=== PATIENT | male | born 1990 | race Caucasian/White ===

== ENCOUNTER 2022-06-10 07:53 | Outpatient (CLI) | payer BC, SELFPAY ==
--- NOTE | 2022-06-10 07:15 | MR_ITS ---
[address] [address] Phone:?[phone] Fax:?[phone] Referring Physician Information: Elo Thomas [address] [facility] [address] Phone:?[phone] Fax:?[phone] Patient:Izabela Escobar D.O.B:?1990 Sex:?Male Phone:?[phone] [facility] MRN:?[id number] Exam Date:?06/10/2022 ? EXAM: MRI of the LEFT ANKLE, without contrast CLINICAL: Left ankle pain. COMPARISONS: None available. TECHNICAL: MRI sequences of the left ankle: Axials: PD, T2 Coronals: PD, T2 Sagittals: PD, T2, STIR SEDATION: None. CONTRAST: None. FINDINGS: Achilles tendon: No tendinopathy or tear. No retrocalcaneal bursitis. Plantar aponeurosis: Unremarkable. Tarsal tunnel: No masses identified. Sinus Tarsi:?Normal fat within the sinus tarsi without significant scar, synovitis, or mass lesion. Ligaments: Anterior talofibular: Irregularity of the ligament consistent with sequelae of prior sprain injuries, without complete disruption. Calcaneofibular: No injury. Posterior talofibular: No injury. Syndesmotic:?The anterior inferior and posterior inferior tibiofibular ligaments are intact. Deltoid: The deep and superficial components of the deltoid ligament are intact. Spring: Intact. Bifurcate and calcaneocuboid: Intact. Flexor tendons: Posterior tibial: Minimal fluid about the tendon. No significant tendinosis or tendon tear. Flexor digitorum longus: Normal. Flexor hallucis longus: Normal. Peroneus brevis and longus: Mild to moderate tendinosis of the peroneal brevis tendon as it courses between the distal fibula and distal calcaneus with mild tendinosis of the adjacent coursing peroneal longus tendon. No significant peroneal tendon tear or displacement. Extensor tendons: Tibialis anterior: Normal, without tendinopathy, tenosynovitis or tear. Extensor hallucis longus: Normal. Extensor digitorum longus: Normal. Joints/Osseous structures: There is partially visualized increased bone marrow edema involving the distal fibular diaphysis/metadiaphysis as seen on the sagittal STIR sequence. No additional evidence of bone marrow edema and no discrete fracture is identified. No talar dome osteochondral lesion. IMPRESSION: 1. Partially visualized increased bone marrow edema involving the distal fibular diaphysis and metadiaphysis, not entirely included in the [id number]. This could reflect osseous stress related change. Recommend follow-up with MRI of the distal tibia/fibula for complete visualization/evaluation. 2. Sequelae of prior sprain injuries involving the anterior talofibular ligament. 3. Mild to moderate tendinosis of the peroneal brevis tendon as it courses between the distal fibula and distal calcaneus, with mild tendinosis of the adjacent peroneal longus tendon. No flexor or extensor tendon tear identified. JCZ Electronically signed on 06/10/2022 11:37:00 AM by Seymour Holt D.O.
--- OUTSIDE RECORDS SUMMARY | 2022-06-10 07:55 | XMS_ITS ---
:1990 Author Care Team Providers Name Role Phone Jamie Uribe Primary Care Provider Unavailable Allergies Code Code System Name Reaction Severity Status Onset NKDA ? Medications Name Status Start Date Stop Date ? ? doxycycline hyclate 100 mg capsule Active ? Not available TAKE 1 CAPSULE BY MOUTH TWICE DAILY FOR 21 DAYS escitalopram 20 mg tablet Completed ? 2020 TAKE 1 TABLET BY MOUTH EVERY MORNING fluoxetine 10 mg capsule Completed ? fluoxetine 20 mg capsule Active ? Not daphnie ilable meloxicam 15 mg tablet Active ? Not avail able TAKE 1 TABLET BY MOUTH EVERY DAY WITH MEALS. sumatriptan 50 mg tablet Completed ? Problems None recorded. Procedures Date Name Performed by ? ? Hernia Repair Information not avai lable Results Lab Results None recorded. Past Encounters None recorded. Social History Tobacco Smoking Status Former Smoker Vaccine List None recorded. Plan of Care Reminders Provider Appointments None recorded. ? ? Lab None recorded. ? ? Referral None recorded. ? ? Procedures None recorded. ? ? Surgeries None recorded. ? ? Imaging None recorded. ? ? Vitals Height Weight BMI 6 ft 2 in 300 lbs 38.5 kg/m2
--- OUTSIDE RECORDS SUMMARY | 2022-06-10 07:55 | XMS_ITS | Clinical Summary ---
:1990 Author Organization [employer] [facility] [place] [address] Care Team Providers Name Role Phone Pcp, No Primary Care Provider Unavailable Allergies No known active allergies Medications Medication Sig Dispensed Refills Start Date End Date Status CPAPIndications: ARLYN autoCPAP, heated 1 Device 0 05/28/2015 Active (obstructive sleep humidifier, mask, apnea) headgear, filters and tubing. Pressure: 4-15cm/H2O Length of Need: 99 medication order Complete Semen 1 Each 0 10/20/2020 Active composerIndications: [facility]. Fax results to [phone] Attn: Dr. Uribe SUMAtriptan (IMITREX) Give at minimum 10 tablet. 3 02/12/2021 Active 50 mg 2hrs apart. Max tabletIndications: Dose: 200mg per Migraine without status 24hrs. migrainosus, not intractable, unspecified migraine type methylPREDNISolone Take by mouth as 21 Tablet 0 08/05/2021 Active (MEDROL DOSEPAK) 4 mg instructed per tabletIndications: Left packaging. cervical radiculopathy cyclobenzaprine Take 1 Tablet (10 20 Tablet 0 08/05/2021 Active (FLEXERIL) 10 mg mg) by mouth 3 tabletIndications: Left times daily. cervical radiculopathy FLUoxetine (PROZAC) 20 TAKE 1 CAPSULE(20 90 Capsule 0 03/03/20 22 Active mg capsuleIndications: MG) BY MOUTH Generalized anxiety EVERY DAY disorder Active Problems Problem Noted Date SOB (shortness of breath) 03/24/2021 History of heat stroke 10/21/2017 ARLYN 04/11/2015 AHI-1.6, RDI-12 05/28/2015 ARLYN (obstructive sleep apnea) 04/28/2015 Overview: 04/11/15 sleep study. Generalized anxiety disorder 07/17/2013 Major depressive disorder, single episode, moderate Heat exhaustion 02/12/2013 Overview: 01/01/13 hospitalized secondary to syncope , severe dehydration, and electrolyte imbalance. Unable to tolerate high-heat environments since incident. Autonomic dysfunction 02/12/2013 Migraines 01/10/2013 Acute hypokalemia 01/01/2013 ARF (acute renal failure) 01/01/2013 Dehydration 01/01/2013 Syncope and collapse 01/01/2013 Tobacco abuse 12/15/2012 Sleep disorder 12/15/2012 Depression with anxiety 05/18/2012 MRSA (methicillin resistant staph aureus) culture posi tive 05/19/2011 Overview: 05/17/11: MRSA isolated from L upper arm abscess Other chronic allergic conjunctivitis 06/22/2007 Regular astigmatism 06/22/2007 Myopia 06/22/2007 Resolved Problems Problem Noted Date Resolved Date EPISCLERITIS-L 01/07/2005 06/22/2007 Immunizations Name Administration Dates Next Due DT (Age < 7 years) 10/09/2008 Influenza, IIV4 03/20/2019, 03/20/2015 Td (Age >=7 Years) 01/24/2003 Tdap 12/19/2020, 01/25/2014 Family History Medical History Relation Name Comments Hypertension Father Diabetes Maternal Grandfather Genetic Other hypertension Fat her~diabetes Grandfather~head aches Diabetes Paternal Grandmother Relation Name Status Comments Father Alive Maternal Grandfather Mother Alive Other Paternal Grandmother Social History Tobacco Use Types Packs/Day Years Used Date Smoking Tobacco: Former Cigarettes 0.3 Quit : 12/02/2012 Smokeless Tobacco: Former Chew Tobacco Cessation: Counseling Given: Yes Alcohol Use Standard Drinks/Week Comments Yes 0 (1 standard drink = 0.6 oz pure alcoho l) weekend use only Alcohol Habits Answer Date Recorded How often do you have a drink containing alcohol? Not asked How many drinks containing alcohol do you have on a typical 1 or 2 03/20/2019 day when you are drinking? How often do you have six or more drinks on one occasion? No t asked Sex Assigned at Date Recorded Not on file Obstetrics History Last Filed Vital Signs Vital Sign Reading Time Taken Comments Blood Pressure 130/72 02/28/2022 11:00 AM CDT Pulse 72 02/28/2022 11:00 AM CDT Temperature 36.3 ??C (97.4 ??F) 02/28/2022 8:38 AM CDT Respiratory Rate 16 02/28/2022 11:00 AM CDT Oxygen Saturation 98% 02/28/2022 11:00 AM CDT Inhaled Oxygen Concentration - - Weight 137.4 kg (303 lb) 02/28/2022 8:38 AM CDT Height 185.4 cm (6' 1) 02/28/2022 8:38 AM CDT Body Mass Index 39.98 02/28/2022 8:38 AM CDT Plan of Treatment Health Maintenance Due Date Last Done Comments COVID-19 vaccine series (#1) 01/29/1991 Pneumococcal series for age 19-64 1996 (1 - PCV) Depression screening for age 12+ 09/11/2021 09/11/2020, 09/2019, 03/20/2019 Influenza for age 9-49 02/25/2022 03/20/2019, 03/20/2015 BMI (ht and wt on same day) for 07/27/2022 07/27/2021, 08/25, age 18+ 07/05/2019, Additional history exists Tetanus booster 12/19/2030 12/19/2020, 01/25/2014, 01/24/2003, Additional history exists HIV for age 15-65 Completed 01/03/2012 Hepatitis C screening for age Completed 01/03/2012 18-79 Tdap Completed 12/19/2020, 01/25/2014 Results Not on filefrom Last 3 Months Additional Health Concerns Infection Onset Date Last Indicated MRSA ClearanceComment: Infection Control Note: Hx of MRS in 2010 (upper arm abscess), surveillance criteria met, no need for further testing or isolation precautions. Do not delete or resolve the infection flag. Nai Desai 08/05/2021 08/05/2021 CALEB cruz .................... 08/05/2021 8:22 AM Insurance Payer Benefit Plan / Subscriber ID Effective Phone Address T ype Group Dates WC WORKERS WC WORKERS COMP [id number] 12/19/2020-Pres [id number] COMP ent [place]RIST[place] JACK [id number] WC WORKERS [employer] WORKERS COMP [id number] 10/09/2008-Pres [id number] [place] [address] WC WORKERS WC WORKERS COMP [id number] 06/09/2011-Pre [phone] [address] [address] COMP sent [address] [place] [address] WC WORKERS WC WORKERS COMP [id number] 07/19/2012-Pres [phone] [id number] [place] [address] WC WORKERS WC WORKERS COMP [id number] 08/21/2012-Pres [phone] [address] COMP ent [address] [place] [address] WC WORKERS WC WORKERS COMP [id number] 01/01/2013-Prese [phone] [address] COMP nt [address] [place] [address] WC WORKERS [facility] [id number] 03/27/2020-Pres [address] [place] [address] [employer]OSS BL[employer] CR[employer] OF [id number] 06/27/2020-[place] [address] [place] [id number] [place] [address] [employer]OSS [employer] OF [id number] 10/25/2013-[place] [place] [address] [place] [address] BLUE CROSS BLUE CROSS Effective for [phone] [place] all dates [place], [place] [address] [id number] Ezequiel Escobar Personal/Family Self [address]) [place] [address] Ezequiel Escobar Workers Comp Self [address] [address] Ezequiel Escobar Workers Comp Self [address] ([place] [address] Ezequiel Escobar Workers Comp Self [address] (Home) [place] [address] Ezequiel Escobar Workers Comp Self [address] (Home) [place] [id number] Advance Directives Latest Code Status on File Code Status Date Activated Date Inactivated Comments Full Code 01/01/2013 7:21 PM 01/03/2013 1:49 PM 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
== END 2022-06-10 07:54 | disposition home or self-care (01) ==
LOC: MRI 07:53
PROVIDERS: PCP Family Medicine; Visit Provider Physician Assistant Surgical
DX: M25.572 Pain in left ankle and joints of left foot (principal); S93.492A Sprain of other ligament of left ankle, initial encounter
CPT/HCPCS: 73721

== ENCOUNTER 2025-03-15 05:29 | Emergency (ER) | payer BC, SELFPAY ==
--- OUTSIDE RECORDS SUMMARY | 2025-03-15 05:31 | XMS_ITS | Clinical Summary ---
Author Organization [facility] Address [address] [place] [id number] Care Team Providers Care Patient Relations Specialist Name Role Phone Pcp, No Primary Care Provider Unavailabl e Allergies No known active allergies Medications CPAPIndications:O SA (obstructive sleep apnea) autoCPAP, heated humidifier, mask, headgear, filters and tubing. 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 Fax results to [phone] Attn: Dr. Uribe 1 Each 10/21/19 21 Active SUMAtriptan (IMITREX) 50 mg tabletIndications :Migraine without status migrainosus, not intractable, unspecified migraine type Give at minimum 2hrs apart. Max Dose: 200mg per 24hrs. 10 tablet. 3 02/13/20 21 Active methylPREDNISolon e (MEDROL DOSEPAK) 4 mg tabletIndications :Left cervical radiculopathy Take by mouth as instructed per packaging. 21 Tablet 08/05/19 22 Active cyclobenzaprine (FLEXERIL) 10 mg tabletIndications :Left cervical radiculopathy Take 1 Tablet (10 mg) by mouth 3 times daily. 20 Tablet 08/05/19 22 Active FLUoxetine (PROZAC) 20 mg capsuleIndication s:Generalized anxiety disorder TAKE 1 CAPSULE(20 MG) BY MOUTH EVERY DAY 90 Capsule 03/03/20 22 Active Active Problems Problem Noted Date Diagnosed Date SOB (shortness of breath) 03/24/2021 History of heat stroke 10/21/2017 ARLYN 04/11/2015 AHI-1.6, RDI-12 05/28/2015 ARLYN (obstructive sleep apnea) 04/28/2015 Overview (04/28/2015): 04/11/15 sleep study. Generalized anxiety disorder 07/17/2013 Major depressive disorder, single episode, moder ate 07/17/2013 Heat exhaustion 02/12/2013 Overview (02/12/2013): 01/01/13 hospitalized secondary to syncope, severe dehydration, and electrolyte imbalance. Unable to tolerate high-heat environments since incident. Autonomic dysfunction 02/12/2013 Migraines 01/10/2013 Acute hypokalemia 01/01/2013 ARF (acute renal failure) 01/01/2013 Dehydration 01/01/2013 Syncope and collapse 01/01/2013 Tobacco abuse 12/15/2012 Sleep disorder 12/15/2012 Depression with anxiety 05/18/2012 MRSA (methicillin resistant staph aureus) cultur e positive 05/19/2011 Overview (05/19/2011): 05/17/11: MRSA isolated from L upper arm abscess Other chronic allergic conjunctivitis 06/22/2007 Regular astigmatism 06/22/2007 Myopia 06/22/2007 Resolved Problems Problem Noted Date Diagnosed Date Resolved Date EPISCLERITIS-L 01/07/2005 06/22/2007 Encounters Date Type Department Care Team Description 03/14/2025 9:29 PM CDT - 03/15/2025 1:07 AM CDT Emergency [address] [address] Guevara Davis MD Injury of muscle of upper back (Primary Dx) Discharge Disposition: Home Self Care 03/14/2025 Travel from Last 3 Months Immunizations Immunization Administration Dates Next Due DT (Age < 7 years) 10/09/2008 Influenza, IIV4 03/20/2019,03/20/2015 Td (Age >=7 Years) 01/24/2003 Tdap 12/19/2020,01/25/2014 Family History Medical History Relation Name Comments Hypertension Father Diabetes Maternal Grandfather Genetic Other hypertension Fa ther~diabetes Grandfather~headaches Diabetes Paternal Grandmother Relation Name Status Comments Father Alive Maternal Grandfather Mother Alive Other Paternal Grandmother Social History Tobacco Use Types Packs/Day Years Used Date Smoking Tobacco: Former Cigarettes Q uit: 12/02/2012 Smokeless Tobacco: Former Chew Tobacco Cessation:Counseling Given: Yes Alcohol Use Standard Drinks/Week Comments Yes 0 (1 standard drink = 0.6 oz pur e alcohol) weekend use only PHQ-2 Answer Date Recorded PHQ-2 TOTAL SCORE 0 09/11/2020 Social Connections Answer Date Recorded Frequency of Communication with Friends and Fami ly Not on file 06/27/2021 Financial Resource Strain Answer Date R ecorded Difficulty of Paying Living Expenses Not on file 06/27/2021 Difficulty of Paying Living Expenses Not on file 06/27/2021 Interpersonal Safety Answer Date Record ed Are you being hit, kicked, p ushed or yelled at (see row info)? No 03/14/2025 Interpersonal Safety Abuse 12 - 18 Not on file 03/14/2025 Interpersonal Safety Ambulatory Vulnerability No t on file 03/14/2025 Sex and Gender Information Value Date Recorded Sex Assigned at Not on file Legal Sex Male 5:47 AM [employer] Gender Identity Not on file Sexual Orientation Not on file Occupation Industry Job Start Date Job End Date Not on file Not on file Not on file Not on file Obstetrics History Last Filed Vital Signs Vital Sign Reading Time Taken Comments Blood Pressure 137/75 03/14/2025 11:26 PM CDT Pulse 79 03/14/2025 11:26 PM CDT Temperature 36.7 C (98 F) 03/14/2025 9:27 PM CDT Respiratory Rate 16 03/14/2025 9:27 PM CDT Oxygen Saturation 98% 03/14/2025 11:26 PM CDT Inhaled Oxygen Concentration - - Weight 127 kg (280 lb) 03/14/2025 9:27 PM CDT Height 188 cm (6' 2) 03/14/2025 9:27 PM CDT Body Mass Index 35.95 03/14/2025 9:27 PM CDT Plan of Treatment Health Maintenance Due Date Last Done Comments Hepatitis B series for 19+ ( 1 of 3 - 19+ 3-dose series) 2009 Pneumococcal series for age 6-49 (1 of 2 - PCV) 2009 HPV series for age 9-45 (1 - 3-dose SCDM series) 2017 Depression screening for age 12+ 09/11/2021 09/11/2020, 08/29/2019, 03/20/2019 BMI (ht and wt on same day) for age 18+ 07/27/2022 07/27/2021, 09/11/2020, 07/05/2019, Additional history exists COVID-19 vaccine series ( - season) 2025 Influenza Vaccine (#1) 2025 03/20/2019, 2014 Tetanus booster 12/19/2030 12/19/2020, 08/0 06/2013, 01/24/2003, Additional history exists RSV vaccine for adults or (1 - 1-dose 75+ series) 2065 HIV for age 15-65 Completed 01/03/2012 Hepatitis C screening for ag e 18-79 Completed 01/03/2012 Procedures Procedure Name Priority Date/Time Associated Diagnosis Comments TROPONIN T (HS) ONE TIME Timed 03/14/2025 11:[address] CHEST ABDOMEN PELVIS W STAT 03/14/2025 10:38 PM CDT EKG 12 LEAD STAT 03/14/2025 10:17 PM CDT UA W/ SEDIMENT EXAM REFLEXED PER CRITERIA STAT 03/14/2025 10:05 PM CDT TROPONIN T (HS) ACUTE W/2HR REFLEX EDUARDA 03/14/2025 9:57 PM CDT CBC WITH AUTO DIFFERENTIAL STAT 03/14/2025 9:57 PM CDT CK TOTAL STAT 03/14/2025 9:57 PM CDT LIPASE STAT 03/14/2025 9:57 PM CDT BASIC METABOLIC PANEL STAT 03/14/2025 9:57 PM CDT CBC WITH AUTO DIFFERENTIAL STAT 03/14/2025 9:57 PM CDT ANTI HIV 1/2 Routine 01/03/2012 10:36 AM CDT Exposure to STD ANTI HCV Routine 01/03/2012 10:36 AM CDT Exposure to STD from Last 3 Months or Most Recently Relevant to Health Maintenance Results * TROPONIN T (HS) ONE TIME (03/14/2025 11:56 PM CDT) TROPONIN T HS 14 6-15 ng/L ng/L 03/15/2025 12:18 AM CDT [facility] Blood BLOOD SPECIMEN / Unknown Non-Lab Butterfly / Unknown 03/14/2025 11:56 PM CDT 03/15/2025 12:00 AM CDT us Guevara Davis MD CHEMISTRY [place] [address] * CT CHEST ABDOMEN PELVIS W (03/14/2025 10:38 PM CDT) Anatomical Region Laterality Modality Abdomen, Pelvis, AORTA, LIVER, SPLEEN, CHEST Computed Tomography 03/14/2025 11:2 5 PM CDT Impressions 03/14/2025 11:25 PM CDT 1. No acute findings in the chest, abdomen, or pelvis. No obvious soft tissue swelling or contusion. No fracture identified. 2. Mild bladder wall thickening. Correlate with urinalysis. Please note that all CT scans at this facility use dose modulation, iterative reconstruction, and/or weight-based dosing when appropriate to reduce radiation dose to as low as reasonably achievable. Dictated by Nimisha Briseno MD @ 03/14/2025 11:25:42 PM (Electronically Signed) Narrative 03/14/2025 11:25 PM CDT For Patients: As a result of the Cures Act, medical imaging exams and procedure reports are released immediately into your electronic medical record. You may view this report before your referring provider. If you have questions, please contact your health care provider. INDICATION: Left lower chest wall, upper abdominal, flank pain. Patient was deadlifting at gym and pulled something, pain on left side of rib cage. Increased pain with deep breathing. TECHNIQUE: CT of the chest, abdomen, and pelvis acquired with 100 cc Omnipaque 350 IV contrast. Coronal and sagittal reconstructions. COMPARISON: CT cardiac coronary arteries 08/15/2020. CT of the abdomen and pelvis 10/06/2021. FINDINGS: CHEST: Cardiovascular structures: Normal heart size. Normal caliber thoracic aorta and central pulmonary arteries. No large central pulmonary embolism. Mediastinum and sloan: No pathologically enlarged lymph nodes. No pericardial effusion. Lungs and pleura: No focal consolidation, pleural effusion, or pneumothorax. No suspicious pulmonary nodules. Minimal bibasilar dependent atelectasis. Chest wall: No mass or adenopathy. No obvious soft tissue swelling or contusion. Bones: Unremarkable for age. No acute fracture identified. ABDOMEN/PELVIS: Liver: Normal in size and attenuation. No suspicious masses. Gallbladder and bile ducts: Unremarkable. No biliary dilation. Spleen: Unremarkable. Pancreas: Unremarkable. Adrenal glands: Unremarkable. Kidneys, Ureters, and Bladder: Symmetric enhancement. Small left renal cyst. No hydronephrosis. No obstructing urinary calculi. Mild circumferential bladder wall thickening. Reproductive organs: Unremarkable. GI tract/Peritoneum: No small bowel dilation. Moderate stool burden. Negative appendix. No intraperitoneal free air or fluid. Vasculature: Abdominal aorta is normal in caliber. Mesenteric arteries appear patent. Lymph nodes: No lymphadenopathy by size criteria. Abdominal wall: Unremarkable. Bones: Unremarkable for age. No acute fracture identified. Procedure Note Nimisha Briseno MD - 03/14/2025 For Patients: As a result of the 21st Century Cures Act, medical imagingexams and procedure reports are released immediately into your electronicmedical record. You may view this report before your referring provider.If you have questions, please contact your health care provider. INDICATION: Left lower chest wall, upper abdominal, flank pain. Patient wasdeadlifting at gym and pulled something, pain on left side of rib cage.Increased pain with deep breathing. TECHNIQUE: CT of the chest, abdomen, and pelvis acquired with 100 cc Omnipaque 350 IVcontrast. Coronal and sagittal reconstructions. COMPARISON: CT cardiac coronary arteries 08/15/2020. CT of the abdomen and onlhoq0910/06/2021. FINDINGS: CHEST: Cardiovascular structures: Normal heart size. Normal caliber thoracicaorta and central pulmonary arteries. No large central pulmonaryembolism. Mediastinum and sloan: No pathologically enlarged lymph nodes. Nopericardial effusion. Lungs and pleura: No focal consolidation, pleural effusion, orpneumothorax. No suspicious pulmonary nodules. Minimal bibasilardependent atelectasis. Chest wall: No mass or adenopathy. No obvious soft tissue swelling orcontusion. Bones: Unremarkable for age. No acute fracture identified. ABDOMEN/PELVIS: Liver: Normal in size and attenuation. No suspicious masses. Gallbladder and bile ducts: Unremarkable. No biliary dilation. Spleen: Unremarkable. Pancreas: Unremarkable. Adrenal glands: Unremarkable. Kidneys, Ureters, and Bladder: Symmetric enhancement. Small left renalcyst. No hydronephrosis. No obstructing urinary calculi. Mildcircumferential bladder wall thickening. Reproductive organs: Unremarkable. GI tract/Peritoneum: No small bowel dilation. Moderate stool burden.Negative appendix. No intraperitoneal free air or fluid. Vasculature: Abdominal aorta is normal in caliber. Mesenteric arteriesappear patent. Lymph nodes: No lymphadenopathy by size criteria. Abdominal wall: Unremarkable. Bones: Unremarkable for age. No acute fracture identified. IMPRESSION: 1. No acute findings in the chest, abdomen, or pelvis. No obvious softtissue swelling or contusion. No fracture identified. 2. Mild bladder wall thickening. Correlate with urinalysis. Please note that all CT scans at this facility use dose modulation,iterative reconstruction, and/or weight-based dosing when appropriate toreduce radiation dose to as low as reasonably achievable. Dictated by Nimisha Briseno MD @ 03/14/2025 11:25:42 PM (Electronically Signed) us Guevara Davis MD CT Fin al Result * UA W/ SEDIMENT EXAM REFLEXED PER CRITERIA (03/14/2025 10:05 PM CDT) COLOR Yellow Yellow Color 03/14/2025 10:13 PM CDT [facility] CLARITY Clear Clear Clarity 03/14/2025 10:13 PM CDT [facility] SPECIFIC GRAVITY,URINE 1.020 1.010, 1.015, 1.020, 1.025 03/14/2025 10:13 PM CDT [facility] PH,URINE 7.5 6.0, 7.0, 8.0, 5.5, 6.5, 7.5, 8.5 03/14/2025 10:13 PM CDT [facility] UROBILINOGEN,Q UALITATIVE Normal Normal EU/dl 03/14/2025 10:13 PM CDT [facility] PROTEIN, URINE Negative Negative mg/dL 03/14/2025 10:13 PM CDT [facility] GLUCOSE, URINE Negative Negative mg/dL 03/14/2025 10:13 PM CDT [facility] KETONES,URINE Negative Negative mg/dL 03/14/2025 10:13 PM CDT [facility] BILIRUBIN,URIN E Negative Negative 03/14/2025 10:13 PM CDT [facility] OCCULT BLOOD,URINE Negative Negative 03/14/2025 10:13 PM CDT [facility] NITRITE Negative Negative 03/14/2025 10:13 PM CDT [facility] LEUKOCYTE ESTERASE Negative Negative 03/14/2025 10:13 PM CDT [facility] Urine URINE SPECIMEN / Unknown Non-Blood / Unknown 03/14/2025 10:05 PM CDT 03/14/2025 10:10 PM CDT us Guevara Davis MD URINE Fin al Result [facility] [address] [place] [id number] * (ABNORMAL) TROPONIN T (HS) ACUTE W/2HR REFLEX (03/14/2025 9:57 PM CDT) TROPONIN T HS 16(H) 6-15 ng/L ng/L 03/14/2025 10:33 PM CDT [facility] Blood BLOOD SPECIMEN / Unknown IV Start / Unknown 03/14/2025 9:57 PM CDT 03/14/2025 10:03 PM CDT Narrative [facility] - 03/14/2025 10:33 PM CDT hs-cTnT (Elecsys Troponin T Gen 5) concentration (s) above the sex-specific 99th percentile (16 ng/L or greater for males or 11 ng/L or greater for females) are indicative of myocardial injury. If initial hs-cTnT <=100 ng/L at presentation, a 0h/2h ABSOLUTE (ng/L) delta change (rising or falling) of >=10 ng/L suggests a significant change, whereas a 0h/2h delta change <=3 ng/L suggests no significant change. If initial hs-cTnT >100 ng/L at presentation, a 0h/2h/ RELATIVE (percent, %) delta change of 20% is suggested to distinguish patients with acute vs. chronic myocardial injury. There are multiple etiologies that can cause hs-cTnT increases above the 99th percentile (myocardial injury) other than acute myocardial infarction. Clinical context and careful clinical evaluation are critical for diagnosis and risk-stratification. The diagnosis of acute myocardial infarction requires a rising and/or falling pattern in hs-cTnT concentrations with at least one value above the sex-specific 99th percentile PLUS at least one of the following clinical criteria: ischemic symptoms, new or presumed new significant ST-T wave changes or new LBBB, development of pathological Q waves, imaging evidence of new loss of viable myocardium or new regional wall motion abnormality, or identification of intracoronary atherothrombosis or an acute angiographic culprit on coronary angiography. In appropriate low-risk patients with a non-ischemic electrocardiogram without active chest pain with a symptom onset >3-hours without recurrence, a single initial hs-cTnT<6 ng/L identifies patient with a very low risk in emergency department patient population. us Guevara Davis MD CHEMISTRY Fin al Result [facility] [address] [place] [address] * (ABNORMAL) CBC WITH AUTO DIFFERENTIAL (03/14/2025 9:57 PM CDT) WHITE BLOOD COUNT 9.6 4.5 - 11.0 thou/cu mm 03/14/2025 10:05 PM CDT [facility] RED BLOOD COUNT 4.66 4.30 - 5.90 mil/cu mm 03/14/2025 10:05 PM CDT [facility] HEMOGLOBIN 13.5 13.5 - 17.5 g/dL 03/14/2025 10:05 PM CDT [facility] HEMATOCRIT 38.8 37.0 - 53.0 % 03/14/2025 10:05 PM CDT [facility] MCV 83 80 - 100 fL 03/14/2025 10:05 PM CDT [facility] MCH 29.0 26.0 - 34.0 pg 03/14/2025 10:05 PM CDT [facility] MCHC 34.8 32.0 - 36.0 g/dL 03/14/2025 10:05 PM CDT [facility] RDW 12.4 11.5 - 15.5 % 03/14/2025 10:05 PM CDT [facility] PLATELET COUNT 260 140 - 440 thou/cu mm 03/14/2025 10:05 PM CDT [facility] MPV 9.7 6.5 - 11.0 fL 03/14/2025 10:05 PM CDT [facility] NRBC 0.0 % 03/14/2025 10:05 PM CDT [facility] ABS NRBC 0.0 thou /cu mm 03/14/2025 10:05 PM CDT [facility] % NEUT 58.0 % 03/14/2025 10:05 PM CDT [facility] % LYMPH 32.5 % 03/14/2025 10:05 PM CDT [facility] % MONO 6.9 % 03/14/2025 10:05 PM CDT [facility] % EOS 1.6 % 03/14/2025 10:05 PM CDT [facility] % BASO 0.7 % 03/14/2025 10:05 PM CDT [facility] % IMMATURE GRAN (METAS,MYELOS,LA OS) 0.3 % 03/14/2025 10:05 PM CDT [facility] ABSOLUTE NEUTROPHILS 5.6 1.7 - 7.0 thou/cu mm 03/14/2025 10:05 PM CDT [facility] ABSOLUTE LYMPHOCYTES 3.1(H) 0.9 - 2.9 thou/cu mm 03/14/2025 10:05 PM CDT [facility] ABSOLUTE MONOCYTES 0.7 <0.9 thou/cu mm 03/14/2025 10:05 PM CDT [facility] ABSOLUTE EOSINOPHILS 0.2 <0.5 thou/cu mm 03/14/2025 10:05 PM CDT [facility] ABSOLUTE BASOPHILS 0.1 <0.3 thou/cu mm 03/14/2025 10:05 PM CDT [facility] ABSOLUTE IMMATURE GRANULOCYTES(MET ,MYELOS,PROS) 0.0 <0.3 thou/cu mm 03/14/2025 10:05 PM CDT [facility] Blood BLOOD SPECIMEN / Unknown IV Start / Unknown 03/14/2025 9:57 PM CDT 03/14/2025 10:03 PM CDT Guevara Davis MD HEMATOLOGY Fin al Result Performing Organization Address City/[facility]/ZIP Co de Phone Number [address] [address] * LIPASE (03/14/2025 9:57 PM CDT) LIPASE 27.4 13.0 - 60.0 IU/L 03/14/2025 10:22 PM CDT [facility] Blood BLOOD SPECIMEN / Unknown IV Start / Unknown 03/14/2025 9:57 PM CDT 03/14/2025 10:03 PM CDT Guevara Davis MD CHEMISTRY Fin al Result Performing Organization Address City/[facility]/ZIP Co de Phone Number [address] [address] * (ABNORMAL) CK TOTAL (03/14/2025 9:57 PM CDT) CK,TOTAL 533(H) 39 - 308 IU/L 03/14/2025 10:22 PM CDT [facility] Blood BLOOD SPECIMEN / Unknown IV Start / Unknown 03/14/2025 9:57 PM CDT 03/14/2025 10:03 PM CDT us Guevara Davis MD CHEMISTRY Fin al Result [facility] [address] [place] [address] * (ABNORMAL) BASIC METABOLIC PANEL (03/14/2025 9:57 PM CDT) SODIUM 139 136 - 145 mmol/L 03/14/2025 10:22 PM CDT [facility] POTASSIUM 4.0 3.5 - 5.1 mmol/L 03/14/2025 10:22 PM CDT [facility] CHLORIDE 105 98 - 107 mmol/L 03/14/2025 10:22 PM CDT [facility] CO2,TOTAL 23 22 - 29 mmol/L 03/14/2025 10:22 PM CDT [facility] ANION GAP 11 5 - 18 03/14/2025 10:22 PM CDT [facility] GLUCOSE 104(H) 70 - 99 mg/dL 03/14/2025 10:22 PM CDT [facility] CALCIUM 9.4 8.8 - 10.4 mg/dL 03/14/2025 10:22 PM CDT [facility] Comment: Reference ranges for this test were updated on 05/01/2024 to reflect our healthy population more accurately. Reference range changes are not retroactively applied to results, but previous results using the same methodology can be interpreted in the context of the new reference range. BUN 30(H) 6 - 20 mg/dL 03/14/2025 10:22 PM CDT [facility] CREATININE 1.35(H) 0.70 - 1.20 mg/dL 03/14/2025 10:22 PM CDT [facility] BUN/CREAT RATIO 22(H) 10 - 20 10:22 PM CDT [facility] eGFR 71(L) >90 mL/min/1. 73m2 03/14/2025 10:22 PM CDT [facility] Comment:As of 2021, eG FR is calculated by the CKD-EPI creatinine equation without race adjustment. eGFR can be influenced by muscle mass, exercise, and diet. The reported eGFR is an estimation only and is only applicable if the renal function is stable. Blood BLOOD SPECIMEN / Unknown IV Start / Unknown 03/14/2025 9:57 PM CDT 03/14/2025 10:03 PM CDT us Guevara Davis MD CHEMISTRY [place] [address] * ANTI HCV (01/03/2012 10:36 AM CDT) ANTI HCV Non-reacti ve [facility] Blood specimen (specimen) BLOOD SPECIMEN / Unknown 01/03/2012 10:36 AM CDT 01/03/2012 10:29 AM CDT us Pelon Cassidy MD SEND OUTS Final Res ult Performing Organization Address [facility]/ZIP Co de Phone Number [facility] INTERNAL ZIP [address] [place] [id number] * ANTI HIV 1/2 (01/03/2012 10:36 AM CDT) ANTI HIV 1/2 Non-reacti ve [facility] Blood specimen (specimen) BLOOD SPECIMEN / Unknown 01/03/2012 10:36 AM CDT 01/03/2012 10:29 AM CDT Pelon Cassidy MD SEND OUTS Final Res ult [facility] INTERNAL ZIP [address] [place] [phone] from Last 3 Months or Most Recently Relevant to Health Maintenance Additional Health Concerns Infection Onset Date Last Indicated MRSA Clearance Comment:Infection Control Note: Hx of MRS in 2011 (upper arm abscess), surveillance criteria met, no need for further testing or isolation precautions. Do not delete or resolve the infection flag. Nai Valdez RN .................... 08/05/2021 8:22 AM 08/05/2021 08/05/2021 Insurance [facility] [address] [address] [place] [address] [address] [address] [employer] [address] [address] [address] [employer] [address] [address] [address] [employer] [address] [address] [address] [employer] [address] [address] [address] [employer] [address] [facility] [address] [facility] [employer] Advance Directives * Full Code (Latest Code Status on File) Date Activated Date Inactivated Comments 01/01/2013 7:21 PM 01/03/2013 1:49 PM Care Teams Patient Relations Specialist Relationship Specialty Start Date End Date Pcp, No . PCP - General 03/19/22
--- OUTSIDE RECORDS SUMMARY | 2025-03-15 05:31 | XMS_ITS | Encounter Summary ---
[facility] [address] [place] [address] Care Team Providers Care Child Protective Investigator Name Role Phone Unavailable Primary Care Provider Unavailabl e Encounter Details Date Type Department Care Team (Latest Contact Info) Description 02/17/2012 Correspondence [facility] [address] [place] [address] Jose Henley MD [address] [place] [address] [address] [place], [place] [phone] HEARING CONSERVATION REPORT Social History Tobacco Use Types Packs/Day Years Used Date Smoking Tobacco: Never Assessed Sex and Gender Information Value Date Recorded Sex Assigned at Not on file Legal Sex Male 6:51 AM CDT Gender Identity Not on file Sexual Orientation Not on file documented as of this encounter Progress Notes * Jose Henley - 02/17/2012 12:00 AM CDT documented in this encounter Plan of Treatment Not on file documented as of this encounter Visit Diagnoses Not on filedocumented in this encounter
--- OUTSIDE RECORDS SUMMARY | 2025-03-15 05:31 | XMS_ITS | Clinical Summary ---
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 For routine questions regarding patient records, call [phone] during business hours, M-F 8:00 AM - 5:00 PM Central Time. Record requests for emergency care only can be directed to [phone] at any time.[facility] Allergies No known active allergies Medications * This document contains information received from the source organization and may not represent a complete record from that organization. SUMAtriptan (IMITREX) 50 mg tablet Take by mouth as needed. 02/12/2021 Active lisdexamfetamine (Vyvanse) 40 mg capsule Take 40 mg by mouth every morning. 12/12/2023 Active meloxicam (Mobic) 7.5 mg tablet Take 1 tablet (7.5 mg total) by mouth daily. 30 tablet 1 12/22/2023 Active Social History Tobacco Use Types Packs/Day Years Used Date Smoking Tobacco: Never Assessed [facility] Utilities Answer Date Recorded In the past 12 months has e electric, gas, oil, or water company threatened to shut off services in your home? Patient declined 12/21/2023 Hunger Vital Sign Answer Date Recorded Within the past 12 months, y ou worried that your food would run out before you got the money to buy more. Patient declined Within the past 12 months, t he food you bought just didn't last and you didn't have money to get more. Patient declined PRAPARE - Transportation Answer Date Re corded In the past 12 months, has l ack of transportation kept you from medical appointments or from getting medications? No 11/26 In the past 12 months, has l ack of transportation kept you from meetings, work, or from getting things needed for daily living? No 12/21/2023 Housing Stability Answer Date Recorded What is your living situation today? Patient dec lined 12/21/2023 Sex and Gender Information Value Date Recorded Sex Assigned at Male 12/21/2023 8:26 PM CDT Legal Sex Male 10:28 AM CDT Gender Identity Male 12/21/2023 8:26 PM CDT Sexual Orientation Straight 12/21/2023 8: 26 PM CDT Last Filed Vital Signs Vital Sign Reading Time Taken Comments Blood Pressure 157/97 11/24/2023 6:39 PM CDT Pulse 77 12/22/2023 9:03 AM CDT Temperature 36.7 C (98.1 F) 12/22/2023 9:03 AM CDT Respiratory Rate 20 11/24/2023 6:39 PM CDT Oxygen Saturation 98% 12/22/2023 9:03 AM CDT Inhaled Oxygen Concentration - - Weight 138 kg (303 lb 12.7 oz) 11/28/2023 11:12 AM CDT Height 186 cm (6' 1.23) 11/28/2023 11:12 AM CDT Body Mass Index 39.83 11/28/2023 11:12 AM CDT Plan of Treatment Health Maintenance Due Date Last Done Comments HIV Screening 1990 Hepatitis C Screening 1990 Hepatitis B Vaccines (1 of 3 - 19+ 3-dose series) 2009 HPV Vaccines (1 - 3-dose SCDM series) 2017 Depression Screening (Annual PHQ-2) 06/27/2024 COVID-19 Vaccine ( - season) 2025 Influenza Vaccine (#1) 2025 03/20/2019, 2014 DTaP,Tdap,and Td Vaccines (5 - Td or Tdap) 12/19/2030 12/19/2020, 01/25/2014, 10/09/2008, Additional history exists IPV Vaccines Aged Out No longer eligi ble based on patient's age to complete this topic Pneumococcal vaccine (0-49 years) Aged Out No longer eligible based on patient's age to complete this topic Insurance [facility] [id number]
--- OUTSIDE RECORDS SUMMARY | 2025-03-15 05:31 | XMS_ITS | Clinical Summary ---
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 [facility] Allergies No known active allergies Medications unknown medication Indication s: PN: 11/12/2003 Active lisdexamfetamine (VYVANSE) 40 MG capsule Take by mouth. 11/30/2024 Active Active Problems No known active problems Encounters Date Type Department Care Team Description 12/18/2024 2:00 PM CDT Office Visit [facility] [address] [address] [address] [place] [address] Shania Hutton, Strain of left elbow, initial encounter (Primary Dx) 12/18/2024 1:05 PM CDT Ancillary Procedure [facility] [address] [address] [address] [place] [address] Aleksandra Brown, Left elbow pain 12/18/2024 1:00 PM CDT Ancillary Procedure [facility] [address] [address] [place] [address] [place] [address] Aleksandra Brown DO Left elbow pain from Last 3 Months Social History Tobacco Use Types Packs/Day Years Used Date Smoking Tobacco: Never Assessed Sex and Gender Information Value Date Recorded Sex Assigned at Not on file Legal Sex Male 6:51 AM CDT Gender Identity Not on file Sexual Orientation Not on file Last Filed Vital Signs Vital Sign Reading Time Taken Comments Blood Pressure - - Pulse - - Temperature 36.8 C (98.3 F) 12/18/2024 2:24 PM CDT Respiratory Rate - - Oxygen Saturation - - Inhaled Oxygen Concentration - - Weight 127 kg (280 lb) 12/07/2024 6:09 PM CDT Height 188 cm (6' 2) 12/07/2024 6:09 PM CDT Body Mass Index 35.95 12/07/2024 6:09 PM CDT Plan of Treatment Health Maintenance Due Date Last Done Comments Hep C Screening (Preventive Services) 1990 HIV Screening (Preventive Services) 2006 Adult Preventive Visit 2008 HepB Vaccine (1) 2009 HPV Vaccine (1 - 3-dose SCDM series) 2017 COVID-19 Vaccine ( - 2023-2 5 season) 2025 Influenza Vaccine (#1) 2025 9, 03/20/2015 DTaP/Tdap/Td Vaccine (3 - Tdap) 12/19/2030 12/19/2020, 01/25/2014 Zoster/Shingles Vaccine (1 o f 2) 2040 HepA Vaccine Aged Out No longer eligi ble based on patient's age to complete this topic Hib Vaccine Aged Out No longer eligi ble based on patient's age to complete this topic IPV (Polio) Vaccine Aged Out No longe r eligible based on patient's age to complete this topic MCV4 Vaccine Aged Out No longer eligi ble based on patient's age to complete this topic Meningococcal B Vaccine Aged Out No l onger eligible based on patient's age to complete this topic Pneumococcal Vaccine Aged Out No long er eligible based on patient's age to complete this topic Procedures Procedure Name Priority Date/Time Associated Diagnosis Comments MR ELBOW LT WO IV CONT Routine 12/18/2024 1:44 PM CDT Left elbow pain XR ORBITS FOR MRI STAT 12/18/2024 1:1 0 PM CDT Left elbow pain from Last 3 Months Results * MR Elbow Lt WO IV Cont (12/18/2024 1:44 PM CDT) Anatomical Region Laterality Modality Upper Extremity, Arm, Elbow, Forearm, Skeletal, MSK Left Magnetic Resonance Impressions 12/18/2024 1:55 PM CDT 1. Minor tendinopathy or strain of the proximal common flexor tendon at its origin. No tendon tearing. 2. Small joint effusion. 3. No acute findings otherwise. Signed by: Alejandro Fernandez 12/18/2024 1:55 PM Narrative 12/18/2024 1:55 PM CDT EXAM: MR ELBOW LT WO IV CONT INDICATION: Assess Medial epicondylitis VS UCL injury COMPARISON: None. TECHNIQUE: Routine MRI of the left elbow was performed without contrast. FINDINGS: MUSCLES AND TENDONS: Minor tendinopathy or strain of the proximal common flexor tendon on coronal image 15. No tendon tearing. Common extensor tendon, brachialis, triceps, and common flexor tendons are intact. LIGAMENTS: The medial and lateral collateral ligament complexes are intact. JOINT: There is no significant degenerative change or focal cartilage defect. Small elbow joint effusion. No osteocartilaginous bodies are identified. MARROW AND SOFT TISSUES: Marrow signal is normal. There is no soft tissue mass. CUBITAL TUNNEL: The cubital tunnel is normal without evidence of mass or anomalous muscle. The ulnar nerve is normal in appearance. Procedure Note Alejandro Fernandez MD - 12/18/2024 EXAM: MR ELBOW LT WO IV CONT INDICATION: Assess Medial epicondylitis VS UCL injury COMPARISON: None. TECHNIQUE: Routine MRI of the left elbow was performed without contrast. FINDINGS: MUSCLES AND TENDONS: Minor tendinopathy or strain of the proximal commonflexor tendon on coronal image 15. No tendon tearing. Common extensor tendon, brachialis, triceps, and common flexor tendons areintact. LIGAMENTS: The medial and lateral collateral ligament complexes areintact. JOINT: There is no significant degenerative change or focal cartilagedefect. Small elbow joint effusion. No osteocartilaginous bodies are identified. MARROW AND SOFT TISSUES: Marrow signal is normal. There is no soft tissuemass. CUBITAL TUNNEL: The cubital tunnel is normal without evidence of mass oranomalous muscle. The ulnar nerve is normal in appearance. IMPRESSION 1. Minor tendinopathy or strain of the proximal common flexor tendon atits origin. No tendon tearing. 2. Small joint effusion. 3. No acute findings otherwise. Signed by: Alejandro Fernandez 12/18/2024 1:55 PM Aleksandra Brown DO RAD MRI Final Result * XR Orbits For MRI (12/18/2024 1:10 PM CDT) Anatomical Region Laterality Modality Head Digital Radiogra phy Narrative 12/18/2024 1:12 PM CDT EXAM: XR ORBITS FOR MRI INDICATION: pre mri screening, medial epicondylitis COMPARISON: None. FINDINGS: Two views. No metallic foreign body is identified in either orbit. No radiopaque foreign body. Signed by: Tamie Chang 12/18/2024 1:12 PM Procedure Note Tamie Chang MD - 12/18/2024 EXAM: XR ORBITS FOR MRI INDICATION: pre mri screening, medial epicondylitis COMPARISON: None. FINDINGS: Two views. No metallic foreign body is identified in either orbit. Noradiopaque foreign body. Signed by: Tamie Chang 12/18/2024 1:12 PM Aleksandra Brown DO RAD GD Final Result from Last 3 Months Insurance [address] [place] [id number] [facility]
[2025-03-15 05:35] VITALS: BP 144/87; PULSE 89; RESP 18; TEMP 36.9; O2SAT 99; BMI 36.6
[2025-03-15 06:23] VITALS: BP 144/87; PULSE 89; RESP 18; TEMP 36.9
--- NOTE | 2025-03-15 06:25 | ED_ITS ---
HPI - Back Pain/Injury General Date Seen: 03/15/25 Chief Complaint: Back Injury/Pain Stated Complaint: back/flank pain Time Seen by Provider: 03/15/25 06:06 Source: patient Mode of arrival: ambulatory Limitations: no limitations History of Present Illness HPI Narrative: Patient is a 34-year-old who was lifting at approximately 8:00 p.m. last evening when he felt a sudden tearing feeling in his left mid back and abdomen. Pain was excruciating and his took him to the [facility] in [place]. The workup there included a CT scan of his chest, abdomen, pelvis with IV contrast. These were completely unremarkable. His lab evaluation including troponin, lipase, basic metabolic panel, CBC which were all normal. Urinalysis was normal. EKG was normal. He is given a dose of Dilaudid which he says did not help his pain. He was discharged without any pain medication. This was at approximately 1:00 a.m.. He presents to our ER at 6:00 a.m. stating that he has not been able to sleep 4 minute due to the pain. He denies a feeling of muscle spasm. The pain is worse in each time he tries to engage his core musculature. He is not interested in pain management but is looking for advanced imaging to tell him whether not he to for any muscles. Related Data Previous Rx's ?Medication ?Instructions ?Recorded lisdexamfetamine 40 mg capsule 40 mg PO QAM #30 caps 0 07/03/24 Allergies Allergy/AdvReac Type Severity Reaction Status Date / Time bee venom protein (honey bee) Allergy Unknown Unknown Verified 03/15/25 05:39 Review of Systems Narrative: Review of systems is outlined above otherwise noted to be negative. [facility] Medical History (Updated 03/15/25 @ 06:24 by Bert Muir MD) Major depression ?F32.9 - Major depressive disorder, single episode, unspecified (ICD-10) History of MRSA infection (05/17/11) ?Z86.14 - Personal history of Methicillin resistant Staphylococcus aureus infection (ICD-10) History of heat stroke ?Z87.828 - Personal history of other (healed) physical injury and trauma (ICD-10) ADHD, predominantly inattentive type ?F90.0 - Attention-deficit hyperactivity disorder, predominantly inattentive type (ICD-10) History of migraine headaches ?Z86.69 - Personal history of other diseases of the nervous system and sense organs (ICD-10) Cardiac hypertrophy ?I51.7 - Cardiomegaly (ICD-10) Anxiety ?F41.9 - Anxiety disorder, unspecified (ICD-10) Lumbar disc disease ?M51.9 - Unspecified thoracic, thoracolumbar and lumbosacral intervertebral disc disorder (ICD-10) ARLYN on CPAP ?G47.33 - Obstructive sleep apnea (adult) (pediatric) (ICD-10) ?Z99.89 - Dependence on other enabling machines and devices (ICD-10) Chronic epididymitis ?N45.1 - Epididymitis (ICD-10) Bee sting allergy ?Z91.030 - Bee allergy status (ICD-10) Bone marrow edema ?R93.7 - Abnormal findings on diagnostic imaging of other parts of musculoskeletal system (ICD-10) Surgical History S/P tonsillectomy ?Z90.89 - Acquired absence of other organs (ICD-10) S/P umbilical hernia repair, follow-up exam (08/14/18) ?Z09 - Encounter for follow-up examination after completed treatment for conditions other than malignant neoplasm (ICD-10) Family History (Updated 07/05/22 @ 11:21 by Aure Olvera) Father High blood pressure Paternal Grandmother Diabetes Maternal Grandfather Diabetes Social History (Updated 03/06/24 @ 22:37 by Bert Muir MD) 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, 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, 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 What is your current living situation?: I presently have a place to live Problems where you live: declined to answer In the past 12 months, utilities in danger of being shut off: declined to answer In past 12 months, lack of transportation kept you from medical appts, meetings, work, or getting things needed for daily living: no In the past 12 mos, have been you worried that your food would run out before you had money to buy more?: declined to answer In the past 12 mos, the food you bought just didn't last and you didn't have money to buy more?: declined to answer Smoking Status: Former smoker Do you use any of these nicotine containing products: None Second hand tobacco smoke exposure: No How often do you have a drink containing alcohol: never AUDIT-C Alcohol total score: 0 Non-prescribed substance use: denies use How often does anyone, including family, friends and others, physically hurt you : decline to answer How often does anyone, including family, friends and others, insult or talk down to you: decline to answer How often does anyone, including family, friends and others, threaten you with harm: decline to answer How often does anyone, including family, friends and others, scream or curse at you: decline to answer Exam Narrative: Exam Narrative: Objective: Vitals noted. Lungs are clear. Heart is regular rate rhythm without murmur. No palpable spasms. He is tender along his left flank radiating into the left mid and lower abdomen. No bruising, swelling is noted. No bony tenderness. No palpable spasms. The muscles are very tender. Const: Vital Signs, click to edit/add: Vital Signs - 24 hr 03/15/25 05:35 03/15/25 06:23 Temperature 98.5 F 98.5 F Pulse Rate [Right Pulse Oximeter] 89 89 Respiratory Rate 18 18 Blood Pressure [Ri ght Upper Arm] 144/87 H 144/87 H Pulse Oximetry 99 Oxygen Delivery Me thod Room Air Course Course ED Course: Patient seen and examined. He has basal looking for an MRI tell him if there is anything torn in his back or abdomen. I explained to him that we do not have MRI services at this hospital at 6:00 a.m.. I offered to do manage his pain but he is really just looking for advanced imaging. At that point he left without any further care. Vital Signs Vital signs: Initial Vital Signs Temperature 98.5 F 03/15/25 05:35 Temperature Source Temporal Artery Scan 03/15/25 05:35 Pulse Rate 89 03/15/25 05:35 Respiratory Rate 18 03/15/25 05:35 Blood Pressure 144/87 H 03/15/25 05:35 Blood Pressure Mean 106 H 03/15/25 05:35 Blood Pressure Position Sitting 03/15/25 05:35 Pulse Oximetry 99 03/15/25 05:35 Oxygen Delivery Method Room Air 03/15/25 05:35 Vital Signs Temperature 98.5 F 03/15/25 05:35 Pulse Rate 89 03/15/25 05:35 Respiratory Rate 18 03/15/25 05:35 Blood Pressure 144/87 H 03/15/25 05:35 Pulse Oximetry 99 03/15/25 05:35 Oxygen Delivery Method Room Air 03/15/25 05:35 Temperature 98.5 F 03/15/25 06:23 Pulse Rate 89 03/15/25 06:23 Respiratory Rate 18 03/15/25 06:23 Blood Pressure 144/87 H 03/15/25 06:23 Pulse Oximetry 99 03/15/25 05:35 Oxygen Delivery Method Room Air 03/15/25 05:35 Discharge Plan Discharge Clinical Impression: Abdominal muscle strain Patient Disposition: Left Against Medical Advice Condition: Unchanged Additional Instructions: Rest, ice, Ibuprofen. Follow up if not improving. Prescriptions: No Action lisdexamfetamine 40 mg capsule 40 mg PO QAM Qty: 30 0RF Follow Up/Referrals: Bert Muir MD [Primary Care Provider, Family Practice] Stand Alone Forms: MyHealth Info Instructions
== END 2025-03-15 06:23 | disposition left against medical advice (07) ==
LOC: ED 06:24
PROVIDERS: Emergency Provider Family Medicine; PCP Family Medicine
DX: S39.011A Strain of muscle, fascia and tendon of abdomen, initial encounter (principal)
CPT/HCPCS: 99281; 99283